=== PATIENT | female | born 1965 | race Caucasian/White ===

== ENCOUNTER 2025-08-29 08:05 | Emergency (ER) | payer OTHER, SELFPAY ==
[2025-08-29 08:18] VITALS: BP 152/100
--- NOTE | 2025-08-29 11:07 | ED.GENMED ---
History of Present Illness
<Waylon Henderson DO, Resident - Last Filed: 08/29/25 11:50>
General
Chief Complaint: DVT/Possible Blood Clot
Source: patient
Exam Limitations: none
Time Seen by Provider: 08/29/25 10:59
Nursing documentation reviewed up to this point in time: agreed with
History of Present Illness
History of Present Illness:
Mey Novoa is a 60-year-old female with medical history of DVT at the age of 49 during a period of immobility, and DVT complicated by PE at the age of 21 when she was on OCP. She also has a history of anemia secondary to menorrhagia treated
with total hysterectomy. She presents today due to redness and swelling of the distal aspect of the left lower extremity. She endorses chronic superficial thrombophlebitis, however she also sustained a recent injury to the area after bumping into
a coffee table. The patient was seen at urgent care where she was prescribed a 7-day course of cephalexin (on day 5) with improvement in localized redness. She presents to the emergency department today because her varicose veins felt especially
tender and red. Patient otherwise denies fevers, chest pain, pleuritic pain, shortness of breath, calf tenderness. She is a non-smoker and denies a recent history of long travel (longer than 2 hours), immobility, or OCP use.
Past History
<Waylon Henderson DO, Resident - Last Filed: 08/29/25 11:50>
Past History
ED Past Medical History: Other (DVT @ age 49, 21; PE @ age 21)
ED Past Surgical History: Gynecological
Social History
Tobacco: Non-smoker
Alcohol: Occasional
Personal:
Living: with family
Review of Systems
<Waylon Henderson DO, Resident - Last Filed: 08/29/25 11:50>
Review of Systems
Allergies reviewed?: Yes
All Other Systems: ROS reviewed and negative except as documented in HPI and ROS
Phy Exam
<Waylon Henderson DO, Resident - Last Filed: 08/29/25 11:50>
Physical Exam
Physical Exam:
General: pleasant, in no acute distress
CV: RRR, no m/r/g
Lungs: CTAB, no wheezing, no rales, no rhonchi
MSK: LLE only slightly swollen compared to the right: Bilateral superficial varicose veins, nontender extremities, no calf tenderness, area of erythema on the ventral aspect of the distal left lower extremity consistent with area of recent injury,
that is improving per patient. Dorsalis pedis pulses 2+ bilaterally. No decreased sensation bilaterally.
Neuro: intact, moving all 4s, steady gait
Psych: calm, normal affect
Scores
<Waylon Henderson DO, Resident - Last Filed: 08/29/25 11:50>
Heart Failure Risk
Heart Failure Risk Score: Not Applicable
Heart Score for Chest Pain Patients
STEMI patient?: Not applicable
Withdrawal Assessment of Alcohol
Withdrawal Assessment Completed?: Not applicable
Course
<Waylon Henderson DO, Resident - Last Filed: 08/29/25 11:50>
Orders/Labs/Results
Orders:
Orders
08/29/25 09:32
US Periph Venous LOWER Ext LT Urgent
Comment:
Reason For Exam: pain and swelling
Vital Signs
Initial and Last Documented VS:
Initial Vital Signs
Temp Pulse Resp BP Pulse Ox
98.5 F 86 16 152/100 98
08/29/25 08:18 08/29/25 08:18 08/29/25 08:18 08/29/25 08:18 08/29/25 08:18
Last Documented Vital Signs
Temp Pulse Resp BP Pulse Ox
98.5 F 69 16 130/88 98
08/29/25 08:18 08/29/25 11:40 08/29/25 08:18 08/29/25 11:40 08/29/25 11:40
<Ashwin Chi DO - Last Filed: 08/29/25 11:32>
Orders/Labs/Results
Orders:
Orders
08/29/25 09:32
US Periph Venous LOWER Ext LT Urgent
Comment:
Reason For Exam: pain and swelling
Vital Signs
Initial and Last Documented VS:
Initial Vital Signs
Temp Pulse Resp BP Pulse Ox
98.5 F 86 16 152/100 98
08/29/25 08:18 08/29/25 08:18 08/29/25 08:18 08/29/25 08:18 08/29/25 08:18
Last Documented Vital Signs
Temp Pulse Resp BP Pulse Ox
98.5 F 69 16 130/88 98
08/29/25 08:18 08/29/25 11:40 08/29/25 08:18 08/29/25 11:40 08/29/25 11:40
<Waylon Henderson DO, Resident - Last Filed: 08/29/25 11:50>
MDM/Problems Addressed
Differential Diagnosis Includes:
DVT, superficial thrombophlebitis, superficial cellulitis
MDM/Problems Addressed:
60-year-old female with a past medical history of DVTs in the past, 1 episode which was complicated by PE, who is presenting with redness and swelling of the left lower extremity. Patient's been on antibiotics for suspected left lower leg
cellulitis and presents to the emergency department due to tenderness of superficial veins. Ultrasound of the left lower extremity did not reveal any DVT, only superficial clots in the areas of varicose veins. Only mild swelling of the left lower
extremity when compared to the right, otherwise neurovascularly intact. Patient to be discharged home for outpatient follow-up with primary care. Patient given information for vascular surgery for possible definitive treatments. Patient vies that
she can take NSAIDs for relief, elevation of the affected extremity, and compression socks as needed.
<Waylon Henderson DO, Resident - Last Filed: 08/29/25 11:50>
*Pulse Oximetry
SaO2: 98
Oxygen Mode of Delivery: Room air
Patient hypoxic: no
*Critical Care Note
Total Time (30-74mins, 75-104mins- exclusive of procedures): Not Applicable
ED Attending Note
<Waylon Henderson DO, Resident - Last Filed: 08/29/25 11:50>
-
Portions of this chart may have been created with voice recognition software.� Occasional wrong word or��sound alike� substitutions may have occurred due to the inherent limitations of voice recognition software.
<Ashwin Chi DO - Last Filed: 08/29/25 11:32>
ED Attending Note
Patient seen and examined by attending physician: Yes
I performed the substantive portion of visit, reviewed & personally made and approve the management plan that is documented in note by myself or DIEGO.: Yes
ED Attending Note:
I evaluated patient at bedside. The patient is well-appearing. To follow-up with vascular as an outpatient as well.
Discharge Plan
Departure
Patient Disposition: Home (Routine Discharge)
Date of Disposition: 08/29/25
Time of Disposition: 11:31
Patient with high blood pressure during this ER visit?: No
Discharge Problem:
Superficial thrombophlebitis
Prescriptions:
No Action
enoxaparin 100 MG/ML syringe
90 mg SC Q12 Qty: 10 0RF
Ferrous Sulfate
325 mg PO BID
Patient Comments:
taking fpr low hem.
oxycodone-acetaminophen 5 MG/325 MG tablet
1 tab PO Q3HPRN PRN (Reason: mild pain) Qty: 0 0RF
warfarin [Jantoven] 5 MG tablet
5 mg PO DAILY@1800 Qty: 0 0RF
docusate sodium 100 MG capsule
100 mg PO BID Qty: 0 0RF
Referrals:
Patricio Underwood III, MD [Active, Vascular Surgery]
Activity Restrictions/Additional Instructions:
Ultrasound of the Left Lower Extremity:
1. No evidence of acute deep venous thrombosis in the left lower extremity as described above.
2. There are partially occlusive clots noted within superficial varices along the lateral left lower leg just below the knee, corresponding with the reported area of interest.
You can follow up with your primary provider for additional recommendations. We provided the phone number of Dr. Underwood, the vascular surgeon, for discussion of more permanent treatments including sclerotherapy if you choose. In the interim, you can
take over the counter NSAIDs, elevate the leg of interest, use compression socks for relief. Return to the emergency department if symptoms worsen, or you experience severe swelling and pain of the leg, or shortness of breath.
Interventions
Interventions:
*Neglect/Abuse Screening Last Done: 08/29/25 08:20
*Risk Screen - Suicide (C-SSRS) Last Done: 08/29/25 08:20
*Nursing Disposition Last Done: 08/29/25 11:40
ED- Cardiac Assessment Last Done: 08/29/25 11:28
ED- Pulmonary Assessment Last Done: 08/29/25 11:28
ED-Peripheral Vascular Assessment Last Done: 08/29/25 11:28
ED-Skin Assessment Last Done: 08/29/25 11:28
Discharge Date and Time
Print Language: UPPER SORBIAN
[2025-08-29 11:28] VITALS: BMI 32.6
[2025-08-29 11:40] VITALS: BP 130/88
== END 2025-08-29 11:57 | disposition home or self-care (01) ==
LOC: EMR 08:05
PROVIDERS: EMERGENCY PHYSICIAN Emergency Medicine; FAMILY PHYSICIAN Family Medicine
DX: I80.02 Phlebitis and thrombophlebitis of superficial vessels of left lower extremity (principal); I83.93 Asymptomatic varicose veins of bilateral lower extremities; Z86.718 Personal history of other venous thrombosis and embolism; Z86.711 Personal history of pulmonary embolism
CPT/HCPCS: 99284; 93971